=== PATIENT | female | born 1950 | race Caucasian/White ===

== ENCOUNTER 2024-04-11 01:00 | Day surgery (SDC) | payer MEDICARE ==
[2024-04-11] MEDS ORDERED: Lidocaine HCl 4% Cream 5 GM ONE (12:37)
== END 2024-04-11 22:47 | disposition home or self-care (01) ==
LOC: WOUND 01:00
DX: L97.812 Non-pressure chronic ulcer of other part of right lower leg with fat layer exposed (principal); S81.801A Unspecified open wound, right lower leg, initial encounter; W22.8XXA Striking against or struck by other objects, initial encounter; I87.2 Venous insufficiency (chronic) (peripheral); I73.9 Peripheral vascular disease, unspecified; R60.0 Localized edema; L03.115 Cellulitis of right lower limb; J45.909 Unspecified asthma, uncomplicated; I10 Essential (primary) hypertension; Z88.1 Allergy status to other antibiotic agents
CPT/HCPCS: 87070; 87075; 87076; 87077; 87186; 87205; A9270

== ENCOUNTER 2024-04-18 02:54 | Day surgery (SDC) | payer MEDICARE ==
[2024-04-18] MEDS ORDERED: Lidocaine HCl 4% Cream 5 GM ONE (10:45)
== END 2024-04-18 23:12 | disposition home or self-care (01) ==
LOC: WOUND 02:54
DX: S81.801A Unspecified open wound, right lower leg, initial encounter (principal); X58.XXXA Exposure to other specified factors, initial encounter; I87.2 Venous insufficiency (chronic) (peripheral); I73.9 Peripheral vascular disease, unspecified; R60.0 Localized edema; L03.115 Cellulitis of right lower limb
CPT/HCPCS: A9270

== ENCOUNTER 2024-04-25 03:16 | Day surgery (SDC) | payer MEDICARE ==
[2024-04-25] MEDS ORDERED: Lidocaine HCl 4% Cream 5 GM ONE (10:34)
== END 2024-04-25 23:00 | disposition home or self-care (01) ==
LOC: WOUND 03:16
DX: L97.812 Non-pressure chronic ulcer of other part of right lower leg with fat layer exposed (principal); S81.801A Unspecified open wound, right lower leg, initial encounter; L03.115 Cellulitis of right lower limb; I87.2 Venous insufficiency (chronic) (peripheral); I73.9 Peripheral vascular disease, unspecified; R60.0 Localized edema; W22.8XXA Striking against or struck by other objects, initial encounter
CPT/HCPCS: A9270

== ENCOUNTER 2024-05-02 02:59 | Day surgery (SDC) | payer MEDICARE ==
[2024-05-02] MEDS ORDERED: Lidocaine HCl 4% Cream 5 GM ONE (09:30)
== END 2024-05-02 23:00 | disposition home or self-care (01) ==
LOC: WOUND 02:59
DX: L97.812 Non-pressure chronic ulcer of other part of right lower leg with fat layer exposed (principal); S81.801A Unspecified open wound, right lower leg, initial encounter; I87.2 Venous insufficiency (chronic) (peripheral); I73.9 Peripheral vascular disease, unspecified; R60.0 Localized edema; L03.115 Cellulitis of right lower limb; W22.8XXA Striking against or struck by other objects, initial encounter
CPT/HCPCS: A9270

== ENCOUNTER 2024-05-09 04:05 | Day surgery (SDC) | payer MEDICARE ==
[2024-05-09] MEDS ORDERED: Lidocaine HCl 4% Cream 5 GM ONE (10:23)
== END 2024-05-09 23:25 | disposition home or self-care (01) ==
LOC: WOUND 04:05
PROC: 0JBN0ZZ Excision of Right Lower Leg Subcutaneous Tissue and Fascia, Open Approach (ICD-10-PCS; principal; 2024-05-09)
DX: S81.801A Unspecified open wound, right lower leg, initial encounter (principal); I73.9 Peripheral vascular disease, unspecified; I87.2 Venous insufficiency (chronic) (peripheral); R60.0 Localized edema; L03.115 Cellulitis of right lower limb; W22.8XXA Striking against or struck by other objects, initial encounter
CPT/HCPCS: A9270

== ENCOUNTER 2024-05-30 10:12 | Day surgery (SDC) | payer MEDICARE | END 2024-05-30 23:00 | disposition home or self-care (01) | LOC: WOUND 10:12 | DX: L97.812 Non-pressure chronic ulcer of other part of right lower leg with fat layer exposed (principal); R60.0 Localized edema; L03.115 Cellulitis of right lower limb; I87.2 Venous insufficiency (chronic) (peripheral); I73.9 Peripheral vascular disease, unspecified | CPT/HCPCS: G0463 ==

== ENCOUNTER 2024-06-06 01:38 | Day surgery (SDC) | payer MEDICARE ==
[2024-06-06] MEDS ORDERED: Lidocaine HCl 4% Cream 5 GM ONE (10:45)
== END 2024-06-06 23:00 | disposition home or self-care (01) ==
LOC: WOUND 01:38
DX: L97.812 Non-pressure chronic ulcer of other part of right lower leg with fat layer exposed (principal); L03.115 Cellulitis of right lower limb; I73.9 Peripheral vascular disease, unspecified; I87.2 Venous insufficiency (chronic) (peripheral)
CPT/HCPCS: A9270

== ENCOUNTER 2024-06-13 05:34 | Day surgery (SDC) | payer MEDICARE ==
[2024-06-13] MEDS ORDERED: Lidocaine HCl 4% Cream 5 GM ONE (10:30)
== END 2024-06-13 23:00 | disposition home or self-care (01) ==
LOC: WOUND 05:34
PROC: 0JBN0ZZ Excision of Right Lower Leg Subcutaneous Tissue and Fascia, Open Approach (ICD-10-PCS; principal; 2024-06-13)
DX: I70.238 Atherosclerosis of native arteries of right leg with ulceration of other part of lower leg (principal); L97.812 Non-pressure chronic ulcer of other part of right lower leg with fat layer exposed; S81.801A Unspecified open wound, right lower leg, initial encounter; I87.2 Venous insufficiency (chronic) (peripheral); L03.115 Cellulitis of right lower limb; W22.8XXA Striking against or struck by other objects, initial encounter
CPT/HCPCS: A9270

== ENCOUNTER 2024-06-27 04:49 | Day surgery (SDC) | payer MEDICARE ==
[2024-06-27] MEDS ORDERED: Lidocaine HCl 4% Cream 5 GM ONE (10:12)
== END 2024-06-27 23:00 | disposition home or self-care (01) ==
LOC: WOUND 04:49
DX: L97.812 Non-pressure chronic ulcer of other part of right lower leg with fat layer exposed (principal); L03.115 Cellulitis of right lower limb; I87.2 Venous insufficiency (chronic) (peripheral); I73.9 Peripheral vascular disease, unspecified
CPT/HCPCS: A9270

== ENCOUNTER 2024-07-04 04:25 | Day surgery (SDC) | payer MEDICARE | END 2024-07-04 23:00 | disposition home or self-care (01) | LOC: WOUND 04:25 | DX: I70.238 Atherosclerosis of native arteries of right leg with ulceration of other part of lower leg (principal); L97.812 Non-pressure chronic ulcer of other part of right lower leg with fat layer exposed; L03.115 Cellulitis of right lower limb; I87.2 Venous insufficiency (chronic) (peripheral) | CPT/HCPCS: G0463 ==

== ENCOUNTER 2024-07-11 01:59 | Day surgery (SDC) | payer MEDICARE ==
[2024-07-11] MEDS ORDERED: Lidocaine HCl 4% Cream 5 GM ONE (10:45)
== END 2024-07-11 23:00 | disposition home or self-care (01) ==
LOC: WOUND 01:59
DX: L97.812 Non-pressure chronic ulcer of other part of right lower leg with fat layer exposed (principal); L03.115 Cellulitis of right lower limb; I87.2 Venous insufficiency (chronic) (peripheral); I73.9 Peripheral vascular disease, unspecified
CPT/HCPCS: A9270; G0463

== ENCOUNTER 2024-07-25 01:35 | Day surgery (SDC) | payer MEDICARE ==
[2024-07-25] MEDS ORDERED: Lidocaine HCl 4% Cream 5 GM ONE (10:46)
[2024-07-25] MEDS ORDERED: Silver Nitr/Potassium Nitrate 1 EA APPL ONE (11:16)
== END 2024-07-27 23:00 | disposition home or self-care (01) ==
LOC: WOUND 01:35
DX: L97.812 Non-pressure chronic ulcer of other part of right lower leg with fat layer exposed (principal); L03.115 Cellulitis of right lower limb; R60.0 Localized edema; I87.2 Venous insufficiency (chronic) (peripheral); I73.9 Peripheral vascular disease, unspecified
CPT/HCPCS: A9270

== ENCOUNTER 2024-08-01 02:16 | Day surgery (SDC) | payer MEDICARE ==
[2024-08-01] MEDS ORDERED: Lidocaine HCl 4% Cream 5 GM ONE (10:30)
== END 2024-08-01 23:00 | disposition home or self-care (01) ==
LOC: WOUND 02:16
DX: L97.812 Non-pressure chronic ulcer of other part of right lower leg with fat layer exposed (principal); R60.0 Localized edema; L03.115 Cellulitis of right lower limb; I87.2 Venous insufficiency (chronic) (peripheral); I73.9 Peripheral vascular disease, unspecified
CPT/HCPCS: A9270

== ENCOUNTER → 2024-08-22 | Day surgery (SDC) | payer MEDICARE ==
[~2024-08-22] MED LIST: Lidocaine HCl 4% Cream 5 GM ONE
== END ==
LOC: WOUND 00:53
DX: L97.812 Non-pressure chronic ulcer of other part of right lower leg with fat layer exposed (principal); R60.0 Localized edema; L03.115 Cellulitis of right lower limb; I87.2 Venous insufficiency (chronic) (peripheral); I73.9 Peripheral vascular disease, unspecified
CPT/HCPCS: A9270; G0463

== ENCOUNTER → 2024-08-29 | Day surgery (SDC) | payer MEDICARE | LOC: WOUND 02:16 | DX: L97.812 Non-pressure chronic ulcer of other part of right lower leg with fat layer exposed (principal); R60.0 Localized edema; L03.115 Cellulitis of right lower limb; I87.2 Venous insufficiency (chronic) (peripheral); I73.9 Peripheral vascular disease, unspecified | CPT/HCPCS: A9270; G0463 ==